=== PATIENT | male | born 1985 | race African-American/Black ===

== ENCOUNTER 2016-03-28 12:51 | Emergency (ER) | payer SELFPAY ==
[~2016-03-28] VITALS: Ht 175.3 cm; Wt 87.4 kg
[~2016-03-28 12:51] MED LIST: AMOXICILLIN875 MG PO; BACTRIM,SEPT1 TABLET PO; CIPRO500 MG PO; IBUPROFEN800 MG PO; MOBIC7.5 MG PO; ZANTAC300 MG PO
[2016-03-28 13:43] LABS: HEMATOCRIT 41.8 % (38.0-50.0); MCH 27.5 PG (29.0-34.0); MCHC 36.4 G/DL (30.0-36.0); MCV 75.7 FL (86-99); MEAN PLAT.VOLUME 10.2 uM^3 (9.0-12.4); PLATELET COUNT 354 K/uL (156-360); RBC DIS.WIDTH-CV 13.6 % (11.8-14.6); RBC DIS.WIDTH-SD 36.6 % (39-53); RED BLOOD COUNT 5.52 M/uL (4.00-5.50); WHITE BLOOD COUNT 8.3 K/uL (4.1-10.2)
[2016-03-28 13:53] LABS: CHLORIDE 104 mEq/L (99-109); POTASSIUM 3.8 mEq/L (3.7-5.4); SODIUM 139 mEq/L (136-147)
[2016-03-28 13:55] LABS: GLUCOSE 124 mg/dL (70-99)
[2016-03-28 13:56] LABS: ANION GAP 11 MEQ/L (2-14)
[2016-03-28 13:57] LABS: TOTAL BILIRUBIN 0.8 mg/dL (0.0-1.0)
[2016-03-28 13:59] LABS: ALKALINE PHOSPHATASE 84 IU/L (3-129); GFR ESTIMATE (CALCULATED) > 59 mL/min/
[2016-03-28 14:00] LABS: UREA NITROGEN (BUN) 14 mg/dL (9-23)
[2016-03-28 14:02] LABS: LIPASE 4 U/L (1.0-51.0)
[2016-03-28 14:04] LABS: ADD MIUA? YES; BILIRUBIN NEGATIVE; BLOOD NEGATIVE; COLOR YELLOW ((YELLOW)); GLUCOSE (STRIP) NEGATIVE; KETONES NEGATIVE; LEUKOCYTES MODERATE; NITRITE NEGATIVE; PROTEIN (STRIP) NEGATIVE; UROBILINOGEN 0.2 MG/DL (0.2-1.0)
[2016-03-28 14:26] LABS: EPITHELIAL CELLS 1+; RED BLOOD CELLS NONE SEEN /HPF (0-5)
[2016-03-28 14:27] LABS: BACTERIA 1+; CASTS NONE SEEN /LPF; CRYSTALS NONE SEEN; MUCUS NONE SEEN; UCUL ADDED? NO
[2016-03-28] MEDS ORDERED: PEPCID20 MG PO (14:59)
[2016-03-28] MEDS ORDERED: CARAFATE1 GM PO (14:59)
[2016-03-28 15:05] VITALS: BP 144/68
== END 2016-03-28 15:06 | disposition home or self-care (01) ==
LOC: EME 12:51
DX: K21.9 Gastro-esophageal reflux disease without esophagitis (principal); R14.0 Abdominal distension (gaseous); F17.200 Nicotine dependence, unspecified, uncomplicated
CPT/HCPCS: 80053; 81003; 83690; 85027; 99281; 99283

== ENCOUNTER 2016-07-02 11:49 | Emergency (ER) | payer SELFPAY ==
[~2016-07-02] VITALS: Ht 175.3 cm; Wt 90.0 kg
[~2016-07-02 11:49] MED LIST changes: +CARAFATE1 GM PO; +PEPCID20 MG PO
[2016-07-02 12:38] LABS: HEMATOCRIT 43.9 % (38.0-50.0); MCH 26.8 PG (29.0-34.0); MCHC 34.4 G/DL (30.0-36.0); MCV 77.8 FL (86-99); MEAN PLAT.VOLUME 9.8 uM^3 (9.0-12.4); PLATELET COUNT 354 K/uL (156-360); RBC DIS.WIDTH-CV 12.9 % (11.8-14.6); RBC DIS.WIDTH-SD 36.4 % (39-53); RED BLOOD COUNT 5.64 M/uL (4.00-5.50); WHITE BLOOD COUNT 8.9 K/uL (4.1-10.2)
[2016-07-02 12:48] LABS: CHLORIDE 102 mEq/L (99-109); POTASSIUM 4.3 mEq/L (3.7-5.4); SODIUM 139 mEq/L (136-147)
[2016-07-02 12:51] LABS: GLUCOSE 93 mg/dL (70-99)
[2016-07-02 12:52] LABS: ANION GAP 10 MEQ/L (2-14); TOTAL BILIRUBIN 0.7 mg/dL (0.0-1.0)
[2016-07-02 12:54] LABS: ALKALINE PHOSPHATASE 90 IU/L (3-129); GFR ESTIMATE (CALCULATED) > 59 mL/min/
[2016-07-02 12:55] LABS: UREA NITROGEN (BUN) 12 mg/dL (9-23)
[2016-07-02 13:15] LABS: ADD MIUA? YES; BILIRUBIN NEGATIVE; BLOOD NEGATIVE; COLOR YELLOW ((YELLOW)); GLUCOSE (STRIP) NEGATIVE; KETONES NEGATIVE; LEUKOCYTES SMALL; NITRITE NEGATIVE; PROTEIN (STRIP) NEGATIVE; SPECIFIC GRAVITY 1.025 (1.000-1.030); UROBILINOGEN 0.2 MG/DL (0.2-1.0)
[2016-07-02 13:26] LABS: BACTERIA RARE /HPF; EPITHELIAL CELLS RARE /HPF; MUCUS TRACE /LPF; RED BLOOD CELLS 0-5 /HPF (0-5); UCUL ADDED? NO
[2016-07-02] MEDS ORDERED: KEFLEX500 MG PO (14:00)
[2016-07-02] MEDS ORDERED: BENTYL20 MG PO (14:00)
[2016-07-02] MEDS ORDERED: CARAFATE1 GM PO (14:00)
[2016-07-02] MEDS ORDERED: ZANTAC300 MG PO (14:00)
[2016-07-02 14:29] VITALS: BP 104/84
== END 2016-07-02 14:35 | disposition home or self-care (01) ==
LOC: EME 11:49
PROC: 3E0T3BZ Introduction of Anesthetic Agent into Peripheral Nerves and Plexi, Percutaneous Approach (ICD-10-PCS; principal; 2016-07-02)
DX: K29.70 Gastritis, unspecified, without bleeding (principal); N39.0 Urinary tract infection, site not specified; K08.89 Other specified disorders of teeth and supporting structures; F17.200 Nicotine dependence, unspecified, uncomplicated
CPT/HCPCS: 80053; 81003; 85027; 99281; 99284; S0020

== ENCOUNTER 2016-09-02 03:53 | Emergency (ER) | payer BC ==
[~2016-09-02] VITALS: Ht 175.3 cm; Wt 88.4 kg
[~2016-09-02 03:53] MED LIST changes: +BENTYL20 MG PO; +KEFLEX500 MG PO
[2016-09-02 05:14] LABS: EOSINOPHIL (%) 2.7 % (0-5); EOSINOPHIL COUNT 0.2 K/uL (0-0.3); HEMATOCRIT 40.5 % (38.0-50.0); IMMATURE GRANULOCYTE (%) 0.1 % (0.0-0.7); INSTRUMENT ABS NEUTROPHIL CT 3.3 K/uL; LYMPHOCYTE COUNT 4.1 K/uL (1.0-2.8); MCH 26.8 PG (29.0-34.0); MCHC 34.8 G/DL (30.0-36.0); MEAN PLAT.VOLUME 10.1 uM^3 (9.0-12.4); MONOCYTE (%) 6.8 % (3-12); MONOCYTE COUNT 0.6 K/uL (0-0.8); NEUTROPHIL COUNT 3.3 K/uL (1.8-6.4); PLATELET COUNT 368 K/uL (156-360); RBC DIS.WIDTH-CV 13.1 % (11.8-14.6); RBC DIS.WIDTH-SD 36.8 % (39-53); RED BLOOD COUNT 5.26 M/uL (4.00-5.50); WHITE BLOOD COUNT 8.1 K/uL (4.1-10.2)
[2016-09-02 05:28] LABS: CHLORIDE 104 mEq/L (99-109)
[2016-09-02 05:29] LABS: SODIUM 137 mEq/L (136-147)
[2016-09-02 05:31] LABS: GLUCOSE 87 mg/dL (70-99)
[2016-09-02 05:32] LABS: ANION GAP 7 MEQ/L (2-14)
[2016-09-02 05:33] LABS: TOTAL BILIRUBIN 0.6 mg/dL (0.0-1.0)
[2016-09-02 05:34] LABS: ALKALINE PHOSPHATASE 88 IU/L (3-129); GFR ESTIMATE (CALCULATED) > 59 mL/min/
[2016-09-02 05:35] LABS: UREA NITROGEN (BUN) 14 mg/dL (9-23)
[2016-09-02 05:38] LABS: LIPASE 8 U/L (1.0-51.0)
[2016-09-02] MEDS ORDERED: PROTONIX40 MG PO (06:15)
[2016-09-02 06:20] VITALS: BP 120/89
== END 2016-09-02 06:20 | disposition home or self-care (01) ==
LOC: EME 03:53
PROVIDERS: Emergency Medicine
DX: K21.9 Gastro-esophageal reflux disease without esophagitis (principal); Z72.0 Tobacco use
CPT/HCPCS: 80053; 83690; 85025; 99281; 99284